=== PATIENT | female | born 1995 | race Caucasian/White ===

== ENCOUNTER 2024-09-30 14:27 | Emergency (ER) | payer OTHER ==
[~2024-09-30] VITALS: Ht 167.6 cm; Wt 67.1 kg
[~2024-09-30 14:27] MED LIST: ACIDOPHILUS LA1 EACH PO; ALPRAZOLAM0.5 MG PO; AMITRIPTYLINE H25 MG PO; APRISO0.375 GM PO; AUGMENTIN 875-1 EACH PO; AZATHIOPRINE50 MG PO; B-12500 MCG PO; BEYAZ; BEYAZ 28 TABLE1 EACH PO; COPAXONE20 MG/KIT SQ; DICYCLOMINE HCL10 MG; DOCUSATE SODIU100 MG PO; FLUOXETINE HCL25 GM PO; HYDROCODON-ACE1 EA12 PO; HYOMAX-SL0.125 MG PO; MERCAPTOPURINE50 MG PO; METOPROLOL SUCCINATE PO; METOPROLOL TART25 MG PO; METRONIDAZOLE500 MG PO; NUEDEXTA 20-101 EACH PO; PREDNISONE1 MG PO; PREDNISONE10 MG PO; PREDNISONE20 MG PO; PREDNISONE5 MG PO; PROMETHAZINE HC25 M1 PO; PROZAC20 MG PO; PV NEURO VITE1 EACH PO; SIMPONI50 MG/0.5 SQ; TECFIDERA PO; TESSALON PERLE100 MG PO; TYLENOL EXTRA500 MG PO; YAZ 28 TABLET1 EACH; ZOFRAN4 MG PO; [UNRECOGNIZED DRUG - OTHER]; [UNRECOGNIZED DRUG - OTHER] PO
[2024-09-30 14:39] VITALS: PULSE 106; RESP 18; TEMP 98.4; O2SAT 100
== END 2024-09-30 17:05 | disposition home or self-care (01) ==
LOC: ER 15:57
DX: L98.9 Disorder of the skin and subcutaneous tissue, unspecified (principal); G35 Multiple sclerosis; Z87.19 Personal history of other diseases of the digestive system
CPT/HCPCS: 99282